=== PATIENT | male | born 2000 | race Caucasian/White ===

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

== ENCOUNTER 2021-02-28 07:25 | Emergency (ER) | payer OTHER, MEDICAID, SELFPAY ==
[2021-02-28 07:28] VITALS: BP 174/108; PULSE 63; RESP 18; TEMP 36.6; O2SAT 100
--- NOTE | 2021-02-28 07:38 | ED.DENTAL ---
HPI - Dental/Oral General Chief complaint: Dental/Oral Stated complaint: tooth pain Time Seen by Provider: 02/28/21 07:32 Source: patient and family Mode of arrival: ambulatory Limitations: no limitations History of Present Illness HPI Narrative: 21-year-old with a history of polycystic kidney disease and hypertension here with complaints of dental pain for past 5 days. He denies any fever or chills. No history of trauma. MD Complaint: tooth pain Location: Tooth # (21,20) Onset (ago): day(s) (5) Severity: moderate Exacerbating factors: nothing Context: history of dental caries Treatment prior to arrival: none Related Data Home Medications Medication Instructions Recorded Confirmed lisinopril 10 mg PO DAILY 08/11/20 Allergies Allergy/AdvReac Type Severity Reaction Status Date / Time No Known Allergies Allergy Verified 01/19/20 05:28 Review of Systems Review of Systems: All systems reviewed & are unremarkable except as noted in HPI and below Constitutional: Constitutional: Reports no additional constitutional complaints Eyes: Eyes: Reports no additional eye complaints ENT: Reports as per HPI Cardiovascular: Cardiovascular: Reports no additional cardiovascular complaints Respiratory: Respiratory: Reports no additional respiratory complaints Gastrointestinal: Gastrointestinal: Reports no additional gastrointestinal complaints Musculoskeletal: Musculoskeletal: Reports no additional musculoskeletal complaints Integumentary/Breasts: Skin/Breast: Reports system reviewed and no additional complaints, except as docu Neurologic: Reports system reviewed and no additional complaints, except as documented Psychiatric: Psychiatric: Reports no additional psychiatric complaints PMFSH Social History Social History Smoking status: Current every day smoker Tobacco type: e-cigarettes/vaping Alcohol intake: never Substance use: never Gender identity (if verbalized by the patient): Male Exam Narrative: GENERAL: Well-appearing, well-nourished, and in no acute distress. HEAD: Normocephalic, atraumatic. EYES: PERRLA and EOMI. ENT: Nares clear, no rhinorrhea or epistaxis. Mucous membranes moist. Multiple dental fillings from 18 to 23 NECK: Supple. CHEST: Clear to auscultation. No respiratory distress. HEART: Regular rate and rhythm. No murmur heard. Normal peripheral pulses. EXTREMITIES: Normal range of motion. No edema. SKIN: Warm, dry, no rash. NEURO: No focal deficits. Alert and oriented x3. PSYCH: Normal mood and affect. Course Vital Signs Vital signs: Vital Signs Temperature 36.6 C 02/28/21 07:28 Pulse Rate 63 02/28/21 07:28 Respiratory Rate 18 02/28/21 07:28 Blood Pressure 174/108 H 02/28/21 07:28 Pulse Oximetry 100 02/28/21 07:28 Temperature 36.6 C 02/28/21 07:28 Pulse Rate 63 02/28/21 07:28 Respiratory Rate 18 02/28/21 07:28 Blood Pressure 174/108 H 02/28/21 07:28 Pulse Oximetry 100 02/28/21 07:28 Discharge Plan Discharge Clinical Impression: Toothache Patient Disposition: Home, Self-Care Condition: Stable Instructions: Antibiotic Form, Toothache (ED) Additional Instructions: Take antibiotic as prescribed, call your dentist for an appointment Prescriptions: New amoxicillin 875 mg tablet 875 mg PO Q12H Qty: 20 RF: 0 tramadol [Ultram] 50 mg tablet 50 mg PO Q6H PRN (Reason: pain) Qty: 14 RF: 0 No Action lisinopril 10 mg Tablet 10 mg PO DAILY RF: 0 ibuprofen 400 mg tablet 400 mg PO TID PRN (Reason: fever or pain) 10 Days Qty: 30 RF: 0 acetaminophen 500 mg capsule 500 mg PO Q6H PRN (Reason: fever or pain) Qty: 30 RF: 0 Follow-up/Referrals: PHYSICIAN,FAMILY SERVICE WORKER [Primary Care Provider] - Stand Alone Forms: Work/School Release IP Time of Disposition: 07:40
== END 2021-02-28 07:51 | disposition home or self-care (01) ==
PROVIDERS: Emergency Provider Family Medicine
DX: K08.89 Other specified disorders of teeth and supporting structures (principal); Q61.3 Polycystic kidney, unspecified; I10 Essential (primary) hypertension; F17.290 Nicotine dependence, other tobacco product, uncomplicated
CPT/HCPCS: 99283

== ENCOUNTER 2022-10-31 22:44 | Emergency (ER) | payer OTHER, SELFPAY ==
[2022-10-31 23:00] VITALS: BP 160/111; PULSE 82; RESP 14; TEMP 36.9; O2SAT 99
[2022-10-31 23:47] VITALS: BP 166/99; PULSE 76; RESP 14; TEMP 36.6; O2SAT 100
--- NOTE | 2022-11-01 00:48 | ED.EAR ---
HPI - Ear Problem General Chief complaint: Ear Stated complaint: ear blockage Time Seen by Provider: 10/31/22 23:52 History of Present Illness HPI Narrative: 22 y/o M reports for evaluation of right ear blockage since yesterday. Patient states it feels like his right ear is blocked and he has diminished hearing. He does report small amount of discomfort, denies pain. He denies drainage. He states he has been sticking Q-tips and Harley pins in his ears to try to get the wax out. Denies cough, congestion, sore throat, fever. Related Data Home Medications Medication Instructions Recorded Confirmed lisinopril 10 mg tablet 10 mg PO DAILY 08/11/20 Allergies Allergy/AdvReac Type Severity Reaction Status Date / Time No Known Allergies Allergy Verified 01/19/20 05:28 Review of Systems Review of Systems: CONSTITUTIONAL: Denies fever, chills EYES: Denies visual changes, redness, or discharge. ENT: See HPI CARDIOVASCULAR: Denies chest pain, palpitations, or edema. RESPIRATORY: Denies cough or dyspnea. GASTROINTESTINAL: Denies abdominal pain, nausea, vomiting, or diarrhea. GENITOURINARY: Denies dysuria or hematuria. SKIN: Denies rash or itching. MUSCULOSKELETAL: Denies back pain, joint pain, or myalgia. NEUROLOGIC: Denies headache, numbness, dizziness, or weakness. PSYCHIATRIC: Denies anxiety or depression. [facility] Social History Social History Smoking status: Current every day smoker Tobacco type: e-cigarettes/vaping Alcohol intake: never Substance use: never Gender identity (if verbalized by the patient): Male Exam Narrative: GENERAL: Well-appearing, in no acute distress. HEAD: Normocephalic ENT: Nares clear. Mucous membranes moist. Oropharynx without tonsillar hypertrophy exudate or other lesions. Left TM burger and nonbulging. Canals normal. Right canal with cerumen impaction and erythema. NECK: Supple. CHEST: No respiratory distress. Clear to auscultation, no adventitious breath sounds. HEART: Regular rate and rhythm. No murmur heard. Normal peripheral pulses. EXTREMITIES: Normal range of motion. No edema. SKIN: Warm, dry, no rash. NEURO: No focal deficits. Alert and oriented x3. PSYCH: Normal mood and affect. Course Vital Signs Vital signs: Vital Signs Temperature 98.4 F 10/31/22 23:00 Pulse Rate 82 10/31/22 23:00 Respiratory Rate 14 10/31/22 23:00 Blood Pressure 160/111 H 10/31/22 23:00 Pulse Oximetry 99 10/31/22 23:00 Temperature 98 F 10/31/22 23:47 Pulse Rate 71 11/01/22 01:00 Respiratory Rate 15 11/01/22 01:00 Blood Pressure 149/106 H 11/01/22 01:00 Pulse Oximetry 100 11/01/22 01:00 Medical Decision Making Vital Signs Vital Signs: Vital Signs Temperature 98.4 F 10/31/22 23:00 Pulse Rate 82 10/31/22 23:00 Respiratory Rate 14 10/31/22 23:00 Blood Pressure 160/111 H 10/31/22 23:00 Pulse Oximetry 99 10/31/22 23:00 Temperature 98 F 10/31/22 23:47 Pulse Rate 71 11/01/22 01:00 Respiratory Rate 15 11/01/22 01:00 Blood Pressure 149/106 H 11/01/22 01:00 Pulse Oximetry 100 11/01/22 01:00 Discharge Plan Discharge Clinical Impression: Otitis externa Patient Disposition: Home, Self-Care Condition: Stable Instructions: Antibiotic Form, Earache (ED) Additional Instructions: You were evaluated in the emergency department for your discomfort. Your ear was irrigated without success. I started you on antibiotics to cover for infection. Please follow-up with your primary care provider within the following week for reevaluation. Referrals been provided. Return to the Emergency Department if you experience fever, worsening pain, or other concerning symptoms. You can take Tylenol ibuprofen for pain. Prescriptions: New ofloxacin 0.3 % drops 5 drp EACH EAR BID 7 Days Qty: 5 0RF amoxicillin-pot clavulanate 875-125 mg tablet
[2022-11-01 01:00] VITALS: BP 149/106; PULSE 71; RESP 15; O2SAT 100
--- NOTE | 2022-11-01 02:33 | ED_ITS ---
HPI - Ear Problem General Chief complaint: Ear Stated complaint: ear blockage Time Seen by Provider: 10/31/22 23:52 Related Data Home Medications Medication Instructions Recorded Confirmed lisinopril 10 mg tablet 10 mg PO DAILY 08/11/20 Allergies Allergy/AdvReac Type Severity Reaction Status Date / Time No Known Allergies Allergy Verified 01/19/20 05:28 [facility] Social History Social History Smoking status: Current every day smoker Tobacco type: e-cigarettes/vaping Alcohol intake: never Substance use: never Gender identity (if verbalized by the patient): Male Course Vital Signs Vital signs: Vital Signs Temperature 98.4 F 10/31/22 23:00 Pulse Rate 82 10/31/22 23:00 Respiratory Rate 14 10/31/22 23:00 Blood Pressure 160/111 H 10/31/22 23:00 Pulse Oximetry 99 10/31/22 23:00 Temperature 98 F 10/31/22 23:47 Pulse Rate 71 11/01/22 01:00 Respiratory Rate 15 11/01/22 01:00 Blood Pressure 149/106 H 11/01/22 01:00 Pulse Oximetry 100 11/01/22 01:00 Medical Decision Making Vital Signs Vital Signs: Vital Signs Temperature 98.4 F 10/31/22 23:00 Pulse Rate 82 10/31/22 23:00 Respiratory Rate 14 10/31/22 23:00 Blood Pressure 160/111 H 10/31/22 23:00 Pulse Oximetry 99 10/31/22 23:00 Temperature 98 F 10/31/22 23:47 Pulse Rate 71 11/01/22 01:00 Respiratory Rate 15 11/01/22 01:00 Blood Pressure 149/106 H 11/01/22 01:00 Pulse Oximetry 100 11/01/22 01:00 Discharge Plan Discharge Clinical Impression: Otitis externa Qualifiers: Otitis externa type: swimmer's ear Chronicity: acute Laterality: right Qualified Code(s): H60.331 - Swimmer's ear, right ear Patient Disposition: Home, Self-Care Condition: Stable Instructions: Antibiotic Form, Earache (ED) Additional Instructions: You were evaluated in the emergency department for your discomfort. Your ear was irrigated without success. I started you on antibiotics to cover for infection. Please follow-up with your primary care provider within the following week for reevaluation. Referrals been provided. Return to the Emergency Department if you experience fever, worsening pain, or other concerning symptoms. You can take Tylenol ibuprofen for pain. Prescriptions: New ofloxacin 0.3 % drops 5 drp EACH EAR BID 7 Days Qty: 5 0RF amoxicillin-pot clavulanate 875-125 mg tablet 1 tablet PO Q12H Qty: 14 0RF No Action lisinopril 10 mg Tablet 10 mg PO DAILY ibuprofen 400 mg tablet 400 mg PO TID PRN (Reason: fever or pain) 10 Days Qty: 30 0RF acetaminophen 500 mg capsule 500 mg PO Q6H PRN (Reason: fever or pain) Qty: 30 0RF amoxicillin 875 mg tablet 875 mg PO Q12H Qty: 20 0RF tramadol [Ultram] 50 mg tablet 50 mg PO Q6H PRN (Reason: pain) Qty: 14 0RF Follow-up/Referrals: Zeeshan Choi MD [Physician] - 3 Days Errol Carrizales MD [Primary Care Provider] -
== END 2022-11-01 02:53 | disposition home or self-care (01) ==
PROVIDERS: Emergency Provider Physician Assistant; PCP Family Medicine
DX: H60.91 Unspecified otitis externa, right ear (principal); F17.290 Nicotine dependence, other tobacco product, uncomplicated
CPT/HCPCS: 99283; A9270

== ENCOUNTER 2024-03-15 07:51 | Emergency (ER) | payer SELFPAY ==
[2024-03-15 07:58] VITALS: BP 169/99; PULSE 73; RESP 19; TEMP 36.4; O2SAT 100
--- NOTE | 2024-03-15 08:15 | ED_ITS ---
HPI - General Adult General Chief complaint: Dental/Oral Stated complaint: toothache Time Seen by Provider: 03/15/24 07:55 History of Present Illness HPI narrative: 24-year-old male presenting to the emergency department for evaluation for dental pain. Patient states he has had right upper dental pain for the past few days. Patient has been taking Tylenol and ibuprofen for pain control without significant results. Patient is going to have follow-up with his dentist but has not yet called today. Related Data Home Medications Medication Instructions Recorded Confirmed lisinopril 10 mg tablet 10 mg PO DAILY 08/11/20 Allergies Allergy/AdvReac Type Severity Reaction Status Date / Time No Known Allergies Allergy Verified 03/15/24 07:51 Review of Systems Review of Systems: All systems reviewed & are unremarkable except as noted in HPI and below PMFSH Social History Social History Smoking status: Current every day smoker Tobacco type: e-cigarettes/vaping Alcohol intake: never Substance use: never Gender identity (if verbalized by the patient): Male Exam Narrative: APPEARANCE: Well appearing, no pain, no distress, well-nourished. HEAD: normocephalic, atraumatic. EYES: PERRLA/EOMI, conjunctivae clear. NOSE: Normal no drainage EARS:TMS clear with good light reflex. Mouth: Dental caries on right upper mandible, no abscess amenable to drainage THROAT: Pharynx clear, no exudate. NECK: Supple. No adenopathy, no masses. RESPIRATORY: Airway patent, respirations nonlabored. Clear to auscultation bilaterally, no rales, rhonchi, wheezing. CARDIOVASCULAR: Regular rate and rhythm without murmurs rubs or gallops. ABDOMINAL: Soft, nontender, nondistended, normal bowel sounds MUSCULOSKELETAL: Moves all extremities. Strength/ROM intact, No edema, No calf tenderness. NEURO: Alert. Cranial nerves II through XII intact. Good gait. Good coordination SKIN: Warm, dry. Normal Color Course Vital Signs Vital signs: Vital Signs Temperature 97.6 F 03/15/24 07:58 Pulse Rate 73 03/15/24 07:58 Respiratory Rate 19 03/15/24 07:58 Blood Pressure 169/99 H 03/15/24 07:58 Pulse Oximetry 100 03/15/24 07:58 Oxygen Delivery Room Air 03/15/24 07:58 Temperature 97.6 F 03/15/24 08:29 Pulse Rate 76 03/15/24 08:29 Respiratory Rate 17 03/15/24 08:29 Blood Pressure 166/98 H 03/15/24 08:29 Pulse Oximetry 100 03/15/24 08:29 Oxygen Delivery Room Air 03/15/24 07:58 Medical Decision Making MDM Narrative Medical decision making narrative: 24-year-old male presenting to the emergency department for evaluation for evaluation for dental pain. Patient does have multiple dental caries. Patient was started on Augmentin. Patient was advised to take Tylenol and ibuprofen for pain control. Patient was also provided tramadol for additional pain control. Patient will have close follow-up with his dentist. Differential Diagnosis Differential Diagnosis: Dental caries, dental infection, dental pain, dental abscess Vital Signs Vital Signs: Vital Signs Temperature 97.6 F 03/15/24 07:58 Pulse Rate 73 03/15/24 07:58 Respiratory Rate 19 03/15/24 07:58 Blood Pressure 169/99 H 03/15/24 07:58 Pulse Oximetry 100 03/15/24 07:58 Oxygen Delivery Room Air 03/15/24 07:58 Temperature 97.6 F 03/15/24 08:29 Pulse Rate 76 03/15/24 08:29 Respiratory Rate 17 03/15/24 08:29 Blood Pressure 166/98 H 03/15/24 08:29 Pulse Oximetry 100 03/15/24 08:29 Oxygen Delivery Room Air 03/15/24 07:58 Discharge Plan Discharge Clinical Impression: Dental caries Patient Disposition: Home, Self-Care Condition: Stable Instructions: Antibiotic Form Additional Instructions: Antibiotic as directed until completed. Tylenol and ibuprofen for pain control. Tramadol as needed for additional pain control. Continue to have close follow- up with your dentist. If you have any worsening symptoms then please call or return to the emergency department. Prescriptions: New amoxicillin-pot clavulanate 875-125 mg tablet 1 tablet PO Q12H 7 Days Qty: 14 0RF tramadol 50 mg tablet 50 mg PO Q6H PRN (Reason: pain) Qty: 14 0RF Discontinued amoxicillin 875 mg tablet 875 mg PO Q12H Qty: 20 0RF tramadol [Ultram] 50 mg tablet 50 mg PO Q6H PRN (Reason: pain) Qty: 14 0RF amoxicillin-pot clavulanate 875-125 mg tablet 1 tablet PO Q12H Qty: 14 0RF No Action lisinopril 10 mg Tablet 10 mg PO DAILY ibuprofen 400 mg tablet 400 mg PO TID PRN (Reason: fever or pain) 10 Days Qty: 30 0RF acetaminophen 500 mg capsule 500 mg PO Q6H PRN (Reason: fever or pain) Qty: 30 0RF ofloxacin 0.3 % drops 5 drp EACH EAR BID 7 Days Qty: 5 0RF Follow-up/Referrals: Errol Carrizales MD [Physician] -
[2024-03-15] MEDS: AMOXICILLIN/CLAVULANATE K 875-125 MG TAB 1 TABLET PO (08:25)
[2024-03-15] MEDS: traMADol HCL (*CRX) 50 MG TABLET PO (08:25)
[2024-03-15 08:29] VITALS: BP 166/98; PULSE 76; RESP 17; TEMP 36.4; O2SAT 100
== END 2024-03-15 08:30 | disposition home or self-care (01) ==
PROVIDERS: Emergency Provider Emergency Medicine
DX: K02.9 Dental caries, unspecified (principal); F17.290 Nicotine dependence, other tobacco product, uncomplicated
CPT/HCPCS: 99283; A9270

== ENCOUNTER 2025-03-17 14:45 | Emergency (ER) | payer OTHER, SELFPAY ==
--- NOTE | ~2025-03-17 | CT_ITS ---
EXAMINATION: CT soft tissue neck w con COMPARISON: None HISTORY: WARRANTY MANAGER TECHNIQUE: Axial images were obtained with IV contrast. Sagittal, coronal reconstruction images were obtained from the axial views. Omnipaque 370, [address] scan performed using dose optimization techniques including the following automated exposure control; adjustment of mA and/or kV; use of iterative reconstruction technique. Automatic exposure control was used to reduce radiation dose. Permanent radiation dose record is archived to PACS. FINDINGS: Visualized brain parenchyma appears unremarkable. Optic globes are unremarkable. There is minimal thickening of the prevertebral space with narrowing of the airway and mass effect on the left side with a rim-enhancing left-sided tonsillar abscess measuring 1.4 x 1.4 cm with dense phlegmon. There is no asymmetry of the base of the tongue. There is no asymmetry of the aryepiglottic folds or the vocal cords. No thyroid nodules. No lymphadenopathy in the anterior superior mediastinum. No thickening of the esophagus. There is stranding noted within the left parapharyngeal space. The right parapharyngeal spaces unremarkable. There are prominent left-sided jugulodigastric lymph nodes. There is no posterior cervical or supraclavicular lymphadenopathy. The lung apices are unremarkable. No sclerotic or lytic lesions. No significant sinusitis. IMPRESSION: Left-sided tonsillar abscess detailed above. Significant narrowing of the airway. Consult with ENT recommended Reviewed, dictated and finalized at location [facility]. [facility]
[2025-03-17 14:54] VITALS: BP 151/84; PULSE 124; RESP 16; TEMP 36.8; O2SAT 98
--- NOTE | 2025-03-17 16:16 | ED.URI ---
HPI - URI/Sore Throat General Chief Complaint: Recheck/Abnormal Lab/Rx <Florence Mendoza PA-C - Last Filed: 03/17/25 19:13> Stated Complaint: swollen tonsils <Florence Mendoza PA-C - Last Filed: 03/17/25 19:13> Time Seen by Provider: 03/17/25 16:16 <Florence Mendoza PA-C - Last Filed: 03/17/25 19:13> Focused HPI: This is a 25 year old male that presents to the ER for sore throat. Ongoing over the last 4 days. Reports fevers. He has been on Amoxicillin since yesterday with little relief. Reports difficulty swallowing. GENERAL: Well-appearing, well-nourished, and in no acute distress. HEAD: Normocephalic, atraumatic. ENT: Muffled voice. Left peritonsillar swelling suspicious for abscess CHEST: Clear to auscultation. ?No respiratory distress. HEART: Regular rate and rhythm.? NEURO: ?Alert and oriented x3. Patient screened in triage and initial orders placed.? ?Additional care and disposition to be based upon?diagnostic testing and treatment. <Florence Mendoza PA-C - Last Filed: 03/17/25 19:13> Focused HPI: This is a 25 year old male that presents to the ER for sore throat. Ongoing over the last 4 days. Reports fevers. He has been on Amoxicillin since yesterday with little relief. Reports difficulty swallowing. GENERAL: Well-appearing, well-nourished, and in no acute distress. HEAD: Normocephalic, atraumatic. ENT: Muffled voice. Left peritonsillar swelling suspicious for abscess CHEST: Clear to auscultation. ?No respiratory distress. HEART: Regular rate and rhythm.? NEURO: ?Alert and oriented x3. Patient screened in triage and initial orders placed.? ?Additional care and disposition to be based upon?diagnostic testing and treatment. <An Chase PA-C - Last Filed: 03/17/25 19:23> Source: patient <An Chase PA-C - Last Filed: 03/17/25 19:23> Mode of arrival: ambulatory <An Chase PA-C - Last Filed: 03/17/25 19:23> Limitations: no limitations <An Chase PA-C - Last Filed: 03/17/25 19:23> History of Present Illness HPI Narrative: Agree with above HPI. Reports difficulty keeping down food and drink. Denies SOB. <An Chase PA-C - Last Filed: 03/17/25 19:23> Related Data Home Medications: Home Medications ?Medication ?Instructions ?Recorded ?Confirmed ?Last Taken ?Type lisinopril 10 mg tablet 10 mg PO DAILY 08/11/20 Unknown History <Florence Mendoza PA-C - Last Filed: 03/17/25 19:13> Allergies/Adverse Reactions: Allergies Allergy/AdvReac Type Severity Reaction Status Date / Time No Known Allergies Allergy Verified 03/17/25 14:46 <Florence Mendoza PA-C - Last Filed: 03/17/25 19:13> Review of Systems Review of Systems: All systems reviewed & are unremarkable except as noted in HPI. <An Chase PA-C - Last Filed: 03/17/25 19:23> All systems reviewed & are unremarkable except as noted in HPI and below <An Chase PA-C - Last Filed: 03/17/25 19:23> [facility] Social History Social History: Social History Tobacco type: e-cigarettes/vaping Alcohol intake: never Substance use: never Gender identity (if verbalized by the patient): Male <Florence Mendoza PA-C - Last Filed: 03/17/25 19:13> Exam Narrative: GENERAL: Mildly ill-appearing, thin, non-toxic, in no acute distress. HEAD: Normocephalic, atraumatic. ENT: Marked swelling of L tonsillar region and protrusion of surrounding soft palate, concerning for [employer]. No significant exudates. Unable to fully visualize posterior oropharynx d/t swelling. Muffled quality to voice. No trismus, but difficulty opening mouth fully. Maintaining secretions. RESPIRATORY: Airway patent, respirations nonlabored. Clear to auscultation bilaterally, no rales, rhonchi, wheezing. CARDIOVASCULAR: Tachycardic with regular rhythm without murmurs, rubs, or gallops. MUSCULOSKELETAL: Moves all extremities. No gross deformities. SKIN: Warm, dry, normal color. NEURO: A&O X3. Speech clear. Cranial nerves II-XII grossly intact. Steady gait. No ataxic movements. PSYCHIATRIC: Appropriate mood and affect. Normal interaction. <JOE Cuba Last Filed: 03/17/25 19:23> Course Vital Signs Vital signs: Vital Signs Temperature 98.2 F 03/17/25 14:54 Pulse Rate 124 H 03/17/25 14:54 Respiratory Rate 16 03/17/25 14:54 Blood Pressure 151/84 H 03/17/25 14:54 Pulse Oximetry 98 03/17/25 14:54 Temperature 98.2 F 03/17/25 14:54 Pulse Rate 124 H 03/17/25 14:54 Respiratory Rate 16 03/17/25 14:54 Blood Pressure 151/84 H 03/17/25 14:54 Pulse Oximetry 98 03/17/25 14:54 <JOE Montaño Last Filed: 03/17/25 19:13> Vital Signs Temperature 98.2 F 03/17/25 14:54 Pulse Rate 124 H 03/17/25 14:54 Respiratory Rate 16 03/17/25 14:54 Blood Pressure 151/84 H 03/17/25 14:54 Pulse Oximetry 98 03/17/25 14:54 Temperature 98.2 F 03/17/25 14:54 Pulse Rate 124 H 03/17/25 14:54 Respiratory Rate 16 03/17/25 14:54 Blood Pressure 151/84 H 03/17/25 14:54 Pulse Oximetry 98 03/17/25 14:54 <JOE Cuba Last Filed: 03/17/25 19:23> MDM - URI/Sore Throat MDM Narrative Medical decision making narrative: Patient reports having sore throat for the past 4 days. Started on amoxicillin by urgent care yesterday without improvement. Reports muffled voice, difficulty swallowing. Patient tachycardic upon arrival. Afebrile here. Exam concerning for peritonsillar abscess. No evidence of respiratory distress at this time. SaO2 stable on RA. CBC with leukocytosis of 13.3. Neutrophil predominance. No bandemia. CMP with evidence of dehydration. Anion gap of 15. Creatinine 1. Fluids initiated. Strep and mono are negative. CT scan of soft tissue neck obtained: There is minimal thickening of the prevertebral space with narrowing of the airway and mass effect on the left side with a rim-enhancing left-sided tonsillar abscess measuring 1.4 x 1.4 cm with dense phlegmon. There is no asymmetry of the base of the tongue. Will discuss with ENT. Discussed case with Dr. Malik, ENT, advised abscess is small, can likely drain in the office tomorrow. Advised to give IV steroids now, call [place] office tomorrow at 9am to be added on as walk in. Switch to augmentin, start on medrol dose nicolas. Discussed these recommendations with patient. He is in agreement with plan. Is feeling improved after Decadron in the ED. He is able to tolerate p.o. intake. Discussed very strict return precautions. Voiced understanding. Patient discharged in stable condition. <An Chase PA-C - Last Filed: 03/17/25 19:23> Medical Records Attestation: I reviewed the patient's medical records. <An Chase PA-C - Last Filed: 03/17/25 19:23> Lab Data Attestation: I reviewed the patient's lab results. <An Chase PA-C - Last Filed: 03/17/25 19:23> Result diagrams: 03/17/25 16:29 03/17/25 16:29 <Florence Mendoza PA-C - Last Filed: 03/17/25 19:13> Labs: Lab Results 03/17/25 03/17/25 Range/Units 16:29 18:28 WBC 13.3 H (4.5-10.0) K/mm3 RBC 5.11 (4.6-6.20) M/mm3 Hgb 15.6 (14.0-18.0) g/dL Hct 47.2 (42.0-52.0) % MCV 92.4 (80-100) fl MCH 30.5 (26-34) pg MCHC 33.1 (32-36) g/dl RDW 12.9 (11.5-14.5) % Plt Count 324 (150-375) k/mm3 MPV 10.9 H (7.4-10.4) fl Immature Gran % (Auto) 0.6 H (0-0.5) % Neut % (Auto) 82.7 H (45.5-73.1) % Lymph % (Auto) 7.1 L (18.3-44.2) % [place] % (Auto) 9.2 H (2.6-8.5) % Eos % (Auto) 0.2 (0-4.4) % Baso % (Auto) 0.2 (0.2-1.2) % Lymph # (Auto) 0.95 (0.9-3.2) K/mm3 [place] # (Auto) 1.2 H (0.1-0.6) K/mm3 Eos # (Auto) 0.0 (0-0.3) K/mm3 Baso # (Auto) 0.0 (0.0-0.1) K/mm3 Abs Immat Gran (auto) 0.08 H (0.00-0.031) K/mm3 Absolute Neuts (auto) 11.0 H (1.3-6.7) K/mm3 Absolute Nucleated RBC 0.000 (0.0-0.012) K/mm3 Nucleated RBC % 0.0 (0.0-0.2) % Sodium 139 (137-145) mmol/L Potassium 3.9 (3.4-5.0) mmol/L Chloride 96 L (98-107) mmol/L Carbon Dioxide 28 (22-30) mmol/L Anion Gap 15 H (4-12) mmol/L BUN 13 (9-20) mg/dL Creatinine 1.03 (0.7-1.3) mg/dL Estim Creat Clear Calc 99 ml/min Estimated GFR > 60 (59 - ) Glucose 96 (65-110) mg/dL Calcium 9.9 (8.4-10.2) mg/dL Monoscreen Negative (Negative) Group A Strep (PCR) Not detected (Negative) <Florence Mendoza PA-C - Last Filed: 03/17/25 19:13> Lab Results 03/17/25 03/17/25 Range/Units 16:29 18:28 WBC 13.3 H (4.5-10.0) K/mm3 RBC 5.11 (4.6-6.20) M/mm3 Hgb 15.6 (14.0-18.0) g/dL Hct 47.2 (42.0-52.0) % MCV 92.4 (80-100) fl MCH 30.5 (26-34) pg MCHC 33.1 (32-36) g/dl RDW 12.9 (11.5-14.5) % Plt Count 324 (150-375) k/mm3 MPV 10.9 H (7.4-10.4) fl Immature Gran % (Auto) 0.6 H (0-0.5) % Neut % (Auto) 82.7 H (45.5-73.1) % Lymph % (Auto) 7.1 L (18.3-44.2) % [place] % (Auto) 9.2 H (2.6-8.5) % Eos % (Auto) 0.2 (0-4.4) % Baso % (Auto) 0.2 (0.2-1.2) % Lymph # (Auto) 0.95 (0.9-3.2) K/mm3 [place] # (Auto) 1.2 H (0.1-0.6) K/mm3 Eos # (Auto) 0.0 (0-0.3) K/mm3 Baso # (Auto) 0.0 (0.0-0.1) K/mm3 Abs Immat Gran (auto) 0.08 H (0.00-0.031) K/mm3 Absolute Neuts (auto) 11.0 H (1.3-6.7) K/mm3 Absolute Nucleated RBC 0.000 (0.0-0.012) K/mm3 Nucleated RBC % 0.0 (0.0-0.2) % Sodium 139 (137-145) mmol/L Potassium 3.9 (3.4-5.0) mmol/L Chloride 96 L (98-107) mmol/L Carbon Dioxide 28 (22-30) mmol/L Anion Gap 15 H (4-12) mmol/L BUN 13 (9-20) mg/dL Creatinine 1.03 (0.7-1.3) mg/dL Estim Creat Clear Calc 99 ml/min Estimated GFR > 60 (59 - ) Glucose 96 (65-110) mg/dL Calcium 9.9 (8.4-10.2) mg/dL Monoscreen Negative (Negative) Group A Strep (PCR) Not detected (Negative) <An Chase PA-C - Last Filed: 03/17/25 19:23> Imaging Data Attestation: I personally reviewed and interpreted this imaging study as follows: <JOE Cuba Last Filed: 03/17/25 19:23> Radiologist's impression: ITS Impressions Soft Tissue Neck CT 03/17/25 17:52 IMPRESSION: Left-sided tonsillar abscess detailed above. Significant narrowing of the airway. Consult with ENT recommended <JOE Cuba Last Filed: 03/17/25 19:23> Critical Care Time Critical Care Time Critical Care Time: No <Florence Mendoza PA-C - Last Filed: 03/17/25 19:13> Discharge Plan Discharge Clinical Impression: Peritonsillar abscess <JOE Montaño Last Filed: 03/17/25 19:13> Patient Disposition: Home <JOE Montaño Last Filed: 03/17/25 19:13> Condition: Stable <JOE Montaño Last Filed: 03/17/25 19:13> Instructions: Antibiotic Form, Peritonsillar Abscess (ED) <JOE Montaño Last Filed: 03/17/25 19:13> Additional Instructions: Take steroids and new antibiotics (Augmentin) as prescribed. Stay well hydrated. Recommend liquid diet. You may continue Tylenol/Ibuprofen for discomfort/fevers. Call ENT office tomorrow promptly at 9am to make appointment to be seen as a walk-in. They are aware you will be calling. Return to the ED if you experience worsening or severe symptoms overnight, difficulty breathing, unable to keep down saliva, or any other symptoms of concern. <JOE Montaño Last Filed: 03/17/25 19:13> Patient Language: Yoruba <Florence Mendoza PA-C - Last Filed: 03/17/25 19:13> Prescriptions: New methylprednisolone [Medrol (Nicolas)] 4 mg tablets,dose pack See Rx Instructions PO .COMPLEX Qty: 21 0RF Rx Instructions: orally per package directions amoxicillin-pot clavulanate 875-125 mg tablet 1 tablet PO Q12H 14 Days Qty: 28 0RF No Action lisinopril 10 mg Tablet 10 mg PO DAILY ibuprofen 400 mg tablet 400 mg PO TID PRN (Reason: fever or pain) 10 Days Qty: 30 0RF acetaminophen 500 mg capsule 500 mg PO Q6H PRN (Reason: fever or pain) Qty: 30 0RF amoxicillin-pot clavulanate 875-125 mg tablet 1 tablet PO Q12H 7 Days Qty: 14 0RF tramadol 50 mg tablet 50 mg PO Q6H PRN (Reason: pain) Qty: 14 0RF ofloxacin 0.3 % drops 5 drp EACH EAR BID 7 Days Qty: 5 0RF <Florence Mendoza PA-C - Last Filed: 03/17/25 19:13> Follow-up/Referrals: Haim Malik MD [Physician, Ear, Nose, Throat] Referral Note: ENT Errol Carrizales MD [Primary Care Provider, Family Practice] <Florence Mendoza PA-C - Last Filed: 03/17/25 19:13> Stand Alone Forms: Work/School Release IP <Florence Mendoza PA-C - Last Filed: 03/17/25 19:13> Time of Disposition: 18:42 <Florence Mendoza PA-C - Last Filed: 03/17/25 19:13> 18:42 <An Chase PA-C - Last Filed: 03/17/25 19:23>
[2025-03-17 16:57] LABS: Hematocrit 47.2 % (42.0-52.0); Hemoglobin 15.6 g/dL (14.0-18.0); Immature Granulocyte Percent A 0.6 % (0-0.5); Lymphocytes Absolute Auto 0.95 K/mm3 (0.9-3.2); Mean Corpuscular HGB Conc 33.1 g/dl (32-36); Mean Corpuscular Hemoglobin 30.5 pg (26-34); Mean Corpuscular Volume 92.4 fl (80-100); Nucleated Red Blood Cells Absolute Auto 0.000 K/mm3 (0.0-0.012); Nucleated Red Blood Cells Perc 0.0 % (0.0-0.2); Platelet Count Result 324 k/mm3 (150-375); Red Blood Count 5.11 M/mm3 (4.6-6.20); White Blood Count 13.3 K/mm3 (4.5-10.0)
[2025-03-17 17:00] LABS: Anion Gap 15 mmol/L (4-12); Blood Urea Nitrogen 13 mg/dL (9-20); Calcium 9.9 mg/dL (8.4-10.2); Carbon Dioxide 28 mmol/L (22-30); Chloride 96 mmol/L (98-107); Estimated CRCL calculation 99 ml/min; Estimated Glomerular Filt Rate > 60; Glucose 96 mg/dL (65-110); Potassium 3.9 mmol/L (3.4-5.0); Sodium 139 mmol/L (137-145)
[2025-03-17] MEDS: dexAMETHasone SOD PHOS INJ 10 MG/ML 1 ML VIAL IV PUSH (17:23)
[2025-03-17] MEDS: KETOROLAC 15 MG/ML VIAL (*BKC) IV PUSH (17:23)
[2025-03-17] MEDS: SODIUM CHLORIDE 0.9% IV 1,000 ML 999 ML IV CONT (17:23)
--- NOTE | 2025-03-17 17:37 | PC.NURSE ---
EDP does not want cultures at this time.
[2025-03-17] MEDS: AMPICILLIN SODIUM/SULBACTAM 3 GM in SODIUM CHLORIDE 0.9% IV 100 ML 200 ML IVPB (17:44)
[2025-03-17 18:22] LABS: Negative Monotest Control Negative (Negative); Positive Monotest Control Positive (Positive)
[2025-03-17 18:58] LABS: Strep Group A RT-PCR NOT DETECTED (Negative)
[2025-03-17 19:28] VITALS: BP 152/85; PULSE 65; RESP 16; TEMP 37.4; O2SAT 98
== END 2025-03-17 19:29 | disposition home or self-care (01) ==
PROVIDERS: Physician Assistant; Emergency Provider Physician Assistant; PCP Family Medicine
DX: J36 Peritonsillar abscess (principal)
CPT/HCPCS: 36415; 70491; 80048; 85025; 86308; 87651; 96361; 96365; 96375; 99284; J0295; J1100; J1885; J7030; Q9967